=== PATIENT | female | born 1990 | race Two or more races ===

== ENCOUNTER 2021-06-06 13:54 | Outpatient (CLI) | payer BC, SELFPAY ==
[2021-06-06 14:07] LABS: Basophils Percent Auto 0.3 % (0.2-1.2); Eosinophils Absolute Auto 0.1 K/mm3 (0-0.3); Eosinophils Percent Auto 1.4 % (0-4.4); Hematocrit 34.1 % (37.0-47.0); Hemoglobin 11.2 g/dL (12.0-15.0); Immature Granulocyte Absolute 0.05 K/mm3 (0.00-0.031); Immature Granulocyte Percent A 0.6 % (0-0.5); Lymphocytes Absolute Auto 1.46 K/mm3 (0.9-3.2); Lymphocytes Percent Auto 16.7 % (18.3-44.2); Mean Corpuscular HGB Conc 32.8 g/dl (32-36); Mean Corpuscular Volume 97.4 fl (80-100); Mean Platelet Volume 9.4 fl (7.4-10.4); Monocytes Absolute Auto 0.8 K/mm3 (0.1-0.6); Monocytes Percent Auto 9.4 % (2.6-8.5); Neutrophils Absolute Auto 6.3 K/mm3 (1.3-6.7); Neutrophils Percent Auto 71.6 % (45.5-73.1); Platelet Count Result 256 k/mm3 (150-375); Red Cell Distribution Width 14.3 % (11.5-14.5); White Blood Count 8.7 K/mm3 (4.5-10.0)
[2021-06-08 10:12] LABS: Rapid Plasma Reagin Non-Reactive (NonReactive)
== END 2021-06-06 13:55 | disposition home or self-care (01) ==
PROVIDERS: PCP Family Medicine; Visit Provider Obstetrics & Gynecology
DX: O34.211 Maternal care for low transverse scar from previous cesarean delivery (principal); Z3A.39 39 weeks gestation of pregnancy
CPT/HCPCS: 36415; 85025; 86592; 86850; 86900; 86901

== ENCOUNTER 2021-06-08 05:45 | Inpatient (IN) | payer BC, SELFPAY ==
[2021-06-08] VITALS (41 sets, daily range): BP systolic 82–108; BP diastolic 28–71; PULSE 50–232; RESP 13–21; TEMP 35.8–37.3; O2SAT 96–100; BMI 31.9
--- NOTE | ~2021-06-08 | CT_ITS ---
EXAMINATION: CTA chest PE protocol DATE: 06/09/2021 05:49 INDICATION: Chest pain TECHNIQUE: Computed tomography angiography (CTA) of the chest was performed with 100 mL Omnipaque-350 intravenous contrast timed to evaluate the pulmonary arteries. Coronal maximum intensity projection 3D-reconstructions were created by the technologist. Automated exposure control and iterative reconst ruction technique were employed. Exam dose: 213.48 mGy-cm total exam DLP. COMPARISON: None. FINDINGS: There is diagnostic contrast enhancement of the pulmonary arteries and no evidence of pulmo nary embolism. There is prominent bilateral lower lobe dependent atelectasis. Bilateral small pleural effusions. Normal heart size. No pericardial effusion. No thoracic aortic aneurysm or dissection. Aberrant right subclavian artery, congenital. No hilar or mediastinal mass lesion or lymphadenopathy. There is a small amount of free air beneath the diaphragm, postsurgical. 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 Reviewed, dictated and finalized at [facility]. 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
--- OUTSIDE RECORDS SUMMARY | 2021-06-08 05:51 | XMS_ITS | Encounter Summary ---
:1990 Author Care Team Providers Name Role Phone Man Walker MD Primary Care Provider [phone] Reason for Visit OB visit Assessment and Plan 1. History of section ? section (SURG) 2. History of depression 3. Routine care Discussion Note: None recorded.Patient educational handouts: No information available. Plan of Care Reminders Provider Appointments Surg Post Op Am y Danette 06/15/2021 MD Caren 10:30AM Lab None ? ? recorded. Referral None ? ? recorded. Procedures None ? ? recorded. Surgeries Rui Surgery Section (SURG) 06/08/2021 Caren Imaging None ? ? recorded. Medications Name Start Date ? ? ? Pulmicort Flexhaler 180 mcg/actuation breath activated ? INHALE 1 PUFF TWICE A DAY BY INHALATION ROUTE. Medications Administered None recorded. Vitals Height Weight BMI Blood Pressure 5 ft 6 in 149 lbs 24 kg/m2 92/59 mm[Hg] Results Lab Results None recorded. Allergies Code Code System Name Reaction Severity Onset NKDA
--- OUTSIDE RECORDS SUMMARY | 2021-06-08 05:51 | XMS_ITS | Encounter Summary ---
:1990 Author Care Team Providers Name Role Phone Man Walker MD Primary Care Provider [phone] Reason for Visit OB visit Assessment and Plan 1. Routine care 2. History of section 3. History of depression Discussion Note: None recorded.Patient educational handouts: No information available. Plan of Care Reminders Provider Appointments Surg Post 06/15/2021 Gladis Chase herese Op 10:30AM MD Caren Lab None ? ? recorded. Referral None ? ? recorded. Procedures None ? ? recorded. Surgeries None ? ? recorded. Imaging None ? ? recorded. Medications Name Start Date ? ? ? Pulmicort Flexhaler 180 mcg/actuation breath activated ? INHALE 1 PUFF TWICE A DAY BY INHALATION ROUTE. Medications Administered None recorded. Vitals Height Weight BMI Blood Pressure 5 ft 6 in 152 lbs 24.5 kg/m2 98/64 mm[Hg] Results Lab Results None recorded. Allergies Code Code System Name Reaction Severity Onset NKDA ? ? ? Problems Name Status Onset Date Source ? [place]
--- OUTSIDE RECORDS SUMMARY | 2021-06-08 05:51 | XMS_ITS | Encounter Summary ---
:1990 Author Care Team Providers Name Role Phone Man Walker MD Primary Care Provider [phone] Reason for Visit OB visit Assessment and Plan 1. History of section 2. Routine care Discussion Note: None recorded.Patient educational [...] BMI Blood Pressure 5 ft 6 in 155 lbs 25 kg/m2 101/68 mm[Hg] Results Lab Results None recorded. Allergies Code Code System Name Reaction Severity Onset NKDA ? ? ? Problems Name Status Onset Date Source ? Active 12/01/2020 ? History of De
--- OUTSIDE RECORDS SUMMARY | 2021-06-08 05:51 | XMS_ITS ---
:1990 Author Care Team Providers Name Role Phone TRENTON MÉNDEZ MD Primary Care Provider [phone] Allergies Code Code System Name Reaction Severity Status Onset NKDA ? Medications Name Status Start Date Stop Date ? ? acetaminophen 300 mg-codeine 30 mg tablet Completed ? 10/27/2020 TAKE 1 TABLET BY MOUTH EVERY 4 TO 6 HOURS NEEDED FOR PAIN albuterol sulfate HFA 90 mcg/actuation aerosol inhaler Completed ? 10/27/2020 INL 2 PFS ITL Q 4 H PRF WHZ amoxicillin 500 mg tablet Completed ? 2020 TAKE 2 TABLETS BY MOUTH TO START, THEN 1 TABLET 3 TIMES A DAY U NTIL FINISHED amoxicillin 875 mg-potassium Completed ? 11/2020 clavulanate 125 mg tablet buspirone 7.5 mg tablet Completed ? 10/28/19 21 chlorhexidine gluconate 0.12 % mouthwash Completed ? 10/27/2020 SWISH AND SPIT 1/2 OUNCE TWICE DAILY UNTIL ALL FINISHED escitalopram 10 mg tablet Completed ? 2020 Active ? Not available Pulmicort Flexhaler 180 mcg/actuation breath activated Active ? Not available INHALE 1 PUFF TWICE A DAY BY INHALATION ROUTE. sertraline 25 mg tablet Completed ? 10/28/19 21 Problems Name Status Onset Date Source ? Active 12/01/2020 ? History of Depression Active ? ? History of Section Active ? ? Procedures Date Name Performed by ? 01/17/2018 Section Information not cristal slade
--- OUTSIDE RECORDS SUMMARY | 2021-06-08 05:51 | XMS_ITS | Encounter Summary ---
:1990 Author Care Team Providers Name Role Phone Man Walker MD Primary Care Provider [phone] Reason for Visit OB visit Assessment and Plan 1. History of section 2. History of depression 3. Routine care [...] BMI Blood Pressure 5 ft 6 in 151 lbs 24.4 kg/m2 111/67 mm[Hg] Results Lab Results None recorded. Allergies Code Code System Name Reaction Severity Onset NKDA ? ? ? Problems Name Status Onset Date Source ? Pregn
--- OUTSIDE RECORDS SUMMARY | 2021-06-08 05:51 | XMS_ITS | Encounter Summary ---
:1990 Author Care Team Providers Name Role Phone Man Walker MD Primary Care Provider [phone] Reason for Visit OB visit Assessment and [...] BMI Blood Pressure 5 ft 6 in 156 lbs 25.2 kg/m2 107/71 mm[Hg] Results Lab Results None recorded. Allergies Code Code System Name Reaction Severity Onset NKDA ? ? ? Problems Name Status Onset Date Source ? Active 12/01/2020 ? History of De
--- OUTSIDE RECORDS SUMMARY | 2021-06-08 05:51 | XMS_ITS | Encounter Summary ---
:1990 Author Care Team Providers Name Role Phone Man Walker MD Primary Care Provider [phone] Reason for Visit OB visit Assessment and [...] BMI Blood Pressure 5 ft 6 in 146 lbs 23.6 kg/m2 99/64 mm[Hg] Results Lab Results None recorded. Allergies Code Code System Name Reaction Severity Onset NKDA ? ? ? Problems Name Status Onset Date Source ?
[2021-06-08] MEDS: LACTATED RINGERS 1,000 ML 125 ML IV CONT (06:34)
--- NOTE | 2021-06-08 06:58 | P.PNAN_ITS ---
Anes - Initial Pre Proc Eval Procedure: Operation Date: 06/08/21 07:30 Proposed Procedures p Repeat Section - Gladis Fabian MD Date/Time: 06/08/21 06:58 Surgeon: Gladis Fabian MD Pre Op Diagnosis: Repeat c/s Patient Data Age: 31 Gender: F Height: 1.49 m Weight: 70.5 kg Last Vital Signs Pulse 86 06/08/21 05:59 BP 101/66 06/08/21 05:59 Allergies Allergy/AdvReac Type Severity Reaction Status Date / Time No Known Allergies Allergy Verified 05/15/21 12:55 Home Medications Medication Instructions Recorded Confirmed Type PNV cmb#95-ferrous fumarate-FA 1 tablet PO DAILY 05/15/21 05/15/21 History [] Patient hx anesthesia problems: none Family hx anesthesia problems: none Results Review: All pre-operative results and documents have been reviewed as part of the pre-operative evaluation. [facility] Surgical History Surgical History (Updated 06/08/21 @ 06:59 by Ranjan Joseph MD) History of section Family History Family History Other No pertinent family history Social History Social History Smoking status: Never smoker Substance use: never Spiritual care concerns: No Anes - Eval Final PreProcedure Day of Procedure 06/08/21 06:58 Patient weight: overweight Heart: regular rate and rhythm Lungs: clear to auscultation Airway: Mallampati scale class II Neurological: alert and oriented Last oral intake: >/= 8 hours ASA classification: II Emergent: no Anesthetic plan: proceed Anesthesia type and monitoring: regional spinal and standard monitoring Results Review: All pre-operative results and documents have been reviewed as part of the pre-operative evaluation. Informed Consent: The patient's anesthetic plan and its attendant risks and benefits were discussed with the patient/family/POA. Questions were solicited and answers provided to the satisfaction of the patient/family/POA.
--- NOTE | 2021-06-08 07:20 | PM.IMHP ---
H&P: HPI History of Present Illness Date/Time: 06/08/21 07:20 Chief Complaint: R CS Narrative: Shanika is a 31yo at 39w for Repeat CS. uncomplicated except by depression, stable without meds currently but wants to restart prozac after delivery. Review of Systems Review of Systems: All systems reviewed & are unremarkable except as noted in HPI and below PMFSH Surgical History Surgical History (Updated 06/08/21 @ 07:23 by Gladis Fabian MD) History of section Family History Family History Other No pertinent family history Social History Social History Smoking status: Never smoker Substance use: never Spiritual care concerns: No Meds Home Medications and Allergies Home Medications Medication Instructions Recorded Confirmed Type PNV cmb#95-ferrous fumarate-FA 1 tablet PO DAILY 05/15/21 05/15/21 History [] Allergies Allergy/AdvReac Type Severity Reaction Status Date / Time No Known Allergies Allergy Verified 05/15/21 12:55 Vital Signs Vital Signs - 24 hr 06/08/21 05:59 Pulse Rate 86 Blood Pressure 101/66 Exam Const: General: no acute distress Resp: Effort & Inspection: normal respiratory effort Auscultation: clear to auscultation bilaterally Cardio: Rate: regular rate Rhythm: regular rhythm GI: GI Palp: Yes Soft to palpation Extrem: General: normal to inspection Assessment and Plan Assessment and plan (1) History of delivery, currently : Code(s): O34.219 - Maternal care for unspecified type scar from previous delivery Status: Acute Additional Plan Plan Repeat CS Discussed RBA, pt consented, all questions answered. will proceed.
--- NOTE | 2021-06-08 07:23 | WPDHPUPDATE1 ---
History and Physical Update Update Date/Time: 06/08/21 07:23 History and Physical has been reviewed, including an updated exam of the patient. There are NO changes in the patient's condition. Risks, benefits, and alternatives have been discussed and questions answered. Patient agrees to proceed with procedure.
--- NOTE | 2021-06-08 08:31 | P.PCNOB_ITS ---
OB - Delivery Note Procedure Delivery date: 06/08/21 Procedure: Procedures Operation Date: 06/08/21 07:30 <No data on this case meets the specified criteria> Repeat Low Transverse Section Route of delivery: Specimen: Yes (placenta) Quantitative Blood Loss (ml): 660 Anesthesia type: Spinal Disposition: floor Complications: none, but a window was seen in the uterus. The amniotic sac was immediately below the uterine serosa. RECOMMEND 37-38 WEEK DELIVERY IF HAS ANOTHER . Narrative: The patient was taken to the OR and received spinal anesthesia. She was placed in dorsal supine position with left lateral tilt. SCDs and garcia were placed. She was prepped and draped in the normal sterile fashion. A Pfannensteil skin incision was made and carried through to the underlying layer of fascia. The fascia was incised in the midline and then extended laterally using Ponce scissors. The muscles were in the midline and the peritoneum was entered bluntly. The peritoneal incision was extended infer iorly and superiorly with care to avoid the bladder. The bladder blade was then inserted, the vesicouterine peritoneum was grasped, incised with Metzenbaum scissors, and a bladder flap created. The bladder blade was reinserted. Below the bladder flap was the amniotic sac, with no uterine muscle overlying. A low transverse uterine incision was made with a scalpel and extended bluntly. AROM was performed and fluid was noted to be clear. The head was delivered, followed by the remainder of the baby. The baby's oropharynx was suctioned. After 30 seconds, the cord was clamped and cut and the infant was handed off. Cord blood was obtained and the placenta was then removed manually. The uterus was exteriorized. A moist lap sponge was used to curette the endometrium. The uterine incision was then closed with one layer of 0-Vicryl in a running, locking fashion. Good hemostasis was noted. The posterior cul de sac was irrigated with normal saline and cleared of all clot and debris. The uterus was returned to the abdomen. Both lateral gutters were then irrigated. The rectus muscles were inspected and found to be hemostatic. The fascia was reapproximated using 0-Vicryl in running fashion. The subcutaneous tissue was irrigated with normal saline and made hemostatic with Bovie electrocautery. The skin was then closed with absorbable juventino. Steri strips and a bandage were applied. The uterus was evacuated. The patient tolerated the procedure very well. All counts were correct. She was taken to the recovery room in good condition. Baby Date of : 06/08/21 Time of : 07:59 Weeks of gestation at delivery: 39 Infant gender: Female Weight (pounds): 8 Weight (ounces): 2 presentation: vertex Placenta delivery description: Spontaneous cord vessel description: 3 Vessels and Delayed Cord Clamping score one minute: 9 score five minutes: 9
[2021-06-08] MEDS: OXYTOCIN 30 UNITS/NS 500 ML 30 UNITS/500 ML BAG 125 UNITS IV CONT (10:09)
--- NOTE | 2021-06-08 11:05 | PC.NURSE ---
Patient transferred to post room #287 via stretcher. Support person present. Oriented to unit, room, information board, rooming in, admission packet and security measures. Patient verbalizes understanding.
--- NOTE | 2021-06-08 12:40 | PC.NURSE ---
Mother called out for assist with feeding, infant sleepy no feeding cues noted. Demonstrated stimulation techniques to wake infant for feeding. Assisted with infant to breast. Reviewed positioning/alignment in cross cradle, holding breast in ?U? hold and guided asymmetrical latch on. Reviewed rational for each. remains sleepy with no rooting cues noted. Suggested skin to skin and attempt again in 30 minutes. Requested mother call out if infant awake and eager to feed.
--- NOTE | 2021-06-08 13:10 | PC.NURSE ---
Mother called out for assist with feeding, reporting was eager at first feeding. Mother states she attempted with first child and had difficulties with latch. is able to freely thrust tongue past gum ridge and flange both lips. Skin is intact on both nipples, no redness and bruising noted. Reviewed feeding cues, frequencies, duration of feedings, feeding elimination flow sheet, and signs of adequate intake. Demonstrated stimulation techniques to wake for feeding. Assisted with to breast. Reviewed positioning/alignment in cross cradle, holding breast in ?U? hold and guided asymmetrical latch on. Reviewed rational for each. Infant able to latch correctly within a few attempts. nursed eagerly with steady draws and occasional swallowing noted, some pausing noted. Reviewed signs of a correct latch, effective nursing and suck swallow ratio. Suggested mother stimulate while feeding to increase stimulation for milk supply, for increased intake and to assist with maintaining deep latch. was able to maintain latch without discomfort to mother. Demonstrated how to adjust latch more deeply while feeding as needed. . Nipple care reviewed of lanolin after feedings, warm compresses as needed. Instructed mother to call out for RN assistance if she is unable to latch for feeding or she has discomfort with nursing. Instructed feeding should be initiated three hours from start of last feeding or if feeding cues are noted before. Mother voiced understanding of information shared.
[2021-06-08] MEDS: DEXTROSE 5%/0.45% SOD CHL 1,000 ML 125 ML IV CONT ×2 (14:12→22:08)
[2021-06-08] MEDS: KETOROLAC 30 MG/ML VIAL (*BKC) IV PUSH ×2 (14:13→21:10)
[2021-06-08] MEDS: ONDANSETRON INJ 4 MG/2 ML VIAL IV PUSH (16:00)
--- NOTE | 2021-06-08 19:39 | PC.NURSE ---
Infant being transferred to [facility] d/t decreased HH, [facility] would like a Kleihauer-Betke drawn. Orders placed and RN notified.
[2021-06-08 20:20] LABS: Basophils Percent Auto 0.4 % (0.2-1.2); Eosinophils Percent Auto 0.4 % (0-4.4); Hematocrit 33.6 % (37.0-47.0); Hemoglobin 10.9 g/dL (12.0-15.0); Immature Granulocyte Absolute 0.02 K/mm3 (0.00-0.031); Immature Granulocyte Percent A 0.2 % (0-0.5); Lymphocytes Absolute Auto 0.67 K/mm3 (0.9-3.2); Lymphocytes Percent Auto 6.7 % (18.3-44.2); Mean Corpuscular HGB Conc 32.4 g/dl (32-36); Mean Corpuscular Hemoglobin 32.2 pg (26-34); Mean Corpuscular Volume 99.4 fl (80-100); Mean Platelet Volume 9.9 fl (7.4-10.4); Monocytes Absolute Auto 0.5 K/mm3 (0.1-0.6); Monocytes Percent Auto 4.7 % (2.6-8.5); Neutrophils Absolute Auto 8.8 K/mm3 (1.3-6.7); Neutrophils Percent Auto 87.6 % (45.5-73.1); Platelet Count Result 220 k/mm3 (150-375); Red Blood Count 3.38 M/mm3 (4.2-5.4); Red Cell Distribution Width 14.1 % (11.5-14.5); White Blood Count 10.1 K/mm3 (4.5-10.0)
[2021-06-09] VITALS (7 sets, daily range): BP systolic 92–113; BP diastolic 51–68; PULSE 65–92; RESP 16–18; TEMP 36.4–38.6; O2SAT 93–98
[2021-06-09] MEDS: KETOROLAC 30 MG/ML VIAL (*BKC) IV PUSH (03:33)
[2021-06-09 04:57] LABS: Add Urine Microscopic? YES; Appearance Urine Clear (Clear); Bacteria Urine Trace /hpf; Bilirubin Urine Negative (Negative); Blood Urine 1+ (Negative); Color Urine Straw (Yellow); Glucose Urine UA Negative (Negative); Ketones Urine Negative (Negative); Leukocyte Esterase Ur 1+ LEU/UL (Negative); Mucus Urine Rare /lpf; Nitrate Urine Negative (Negative); Protein Urine Negative (Negative); RBC Urine 0-2 /hpf (0-2); Urobilinogen Urine Negative mg/dL (<2.0); WBC Urine 0-3 /hpf
[2021-06-09 05:03] LABS: Alanine Aminotransferase 12 U/L (4-35); Albumin Level 2.5 g/dL (3.5-5.1); Alkaline Phosphatase 132 U/L (38-126); Anion Gap 2 mmol/L (8-16); Aspartate Amino Transferase 25 U/L (14-36); Bilirubin,Total 0.3 mg/dL (0.2-1.3); Blood Urea Nitrogen 3 mg/dL (7-17); Calcium 7.7 mg/dL (8.4-10.2); Carbon Dioxide 22 mmol/L (22-30); Chloride 105 mmol/L (98-107); Estimated Glomerular Filt Rate > 60; Glucose 143 mg/dL (65-110); Potassium 3.5 mmol/L (3.4-5.0); Sodium 129 mmol/L (137-145)
[2021-06-09 05:19] LABS: Specific Grav Ur 1.003 (1.001-1.035)
[2021-06-09] MEDS: AMPICILLIN 2 GM/NS 100 ML 2 GM/100 ML BAG IVPB (05:42)
[2021-06-09] MEDS: GENTAMICIN 60 MG/50 ML NS 60 MG/50 ML BAG 100 MG IVPB ×2 (07:30→16:58)
--- NOTE | 2021-06-09 07:43 | PM.OBPNVD ---
OB - PN: Subj Subjective Date/time seen: 06/09/21 07:43 Patient comments: no complaints [place] baby status: NICU [place] feeding status: pumping and storing Narrative: POD 1 from primary CS. Baby transferred to [facility] for HDN. Shanika had temp 101.5 overnight and 99.1 most recently. Antibiotics started. UA not impressive. Had some referred pain bilateral clavicular and shoulder pain. CT neg for PE, showed atelectasis and small pleural effusions. OB - PN: Obj Data Labs CBC & Chem 7: 06/08/21 19:52 06/09/21 04:34 Labs: Laboratory Results - last 24 hr 06/08/21 06/08/21 06/09/21 19:52 19:52 04:34 WBC 10.1 H RBC 3.38 L Hgb 10.9 L Hct 33.6 L MCV 99.4 MCH 32.2 MCHC 32.4 RDW 14.1 Plt Count 220 MPV 9.9 Immature Gran % (Auto) 0.2 Neut % (Auto) 87.6 H Lymph % (Auto) 6.7 L [place] % (Auto) 4.7 Eos % (Auto) 0.4 Baso % (Auto) 0.4 Lymph # (Auto) 0.67 L [place] # (Auto) 0.5 Eos # (Auto) 0.0 Baso # (Auto) 0.0 Abs Immat Gran (auto) 0.02 Absolute Neuts (auto) 8.8 H Absolute Nucleated RBC 0.0 Nucleated RBC % 0.0 Sodium 129 L Potassium 3.5 Chloride 105 Carbon Dioxide 22 Anion Gap 2 L BUN 3 L Creatinine 0.40 L Estim Creat Clear Calc Not Reportable Estimated GFR > 60 Glucose 143 H Calcium 7.7 L Total Bilirubin 0.3 AST 25 ALT 12 Alkaline Phosphatase 132 H Total Protein 5.0 L Albumin 2.5 L Urine Color Urine Appearance Urine pH Ur Specific [place] Urine Protein Urine Glucose (UA) Urine Ketones Ur Blood (Man) Urine Nitrate Urine Bilirubin Urine Urobilinogen Leukocyte Esterase Rfl Urine RBC Urine WBC Urine Bacteria Urine Mucus KB Hemoglobin Negative 06/09/21 04:37 WBC RBC Hgb Hct MCV MCH MCHC RDW Plt Count MPV Immature Gran % (Auto) Neut % (Auto) Lymph % (Auto) [place] % (Auto) Eos % (Auto) Baso % (Auto) Lymph # (Auto) [place] # (Auto) Eos # (Auto) Baso # (Auto) Abs Immat Gran (auto) Absolute Neuts (auto) Absolute Nucleated RBC Nucleated RBC % Sodium Potassium Chloride Carbon Dioxide Anion Gap BUN Creatinine Estim Creat Clear Calc Estimated GFR Glucose Calcium Total Bilirubin AST ALT Alkaline Phosphatase Total Protein Albumin Urine Color Straw Urine Appearance Clear Urine pH 7.0 Ur Specific [place] 1.003 Urine Protein Negative Urine Glucose (UA) Negative Urine Ketones Negative Ur Blood (Man) 1+ H Urine Nitrate Negative Urine Bilirubin Negative Urine Urobilinogen Negative Leukocyte Esterase Rfl 1+ H Urine RBC 0-2 Urine WBC 0-3 Urine Bacteria Trace Urine Mucus Rare KB Hemoglobin OB - PN A/P Assessment and Plan (1) delivery delivered: Code(s): O82 - Encounter for delivery without indication Status: Acute (2) Fever and chills: Code(s): R50.9 - Fever, unspecified Status: Acute Plan day: 1 Plan: routine care Comments: Continue antibiotics for 24 hours. Urine culture pending COVID test pending CT chest neg for PE, atelectasis present Incentive spirometer q 1 hour. Do not suspect surgical infection as fever present less than 24 hours after delivery. Time Spent With Patient Time: Total time spent is greater than 50% in coordination of care (as documented) at patient's floor/unit and/or counseling patient: Exam Narrative: NAD abdomen soft, appropriately tender, incision bandaged Extremities nontender with 1+ edema lungs CTAB except mild crackles at bases
[2021-06-09] MEDS: KCL 20 MEQ/D5/0.45% SOD CHL 1,000 ML 125 ML (08:41)
[2021-06-09] MEDS: HYDROcodone/acetaminophen (*CRX) 5-325 MG TABLET 1 TAB PO ×4 (08:41→19:56)
[2021-06-09] MEDS: DOCUSATE SODIUM 100 MG CAPSULE PO ×2 (08:42→17:09)
[2021-06-09] MEDS: MULTIVIT/MIN/PREN/FOL AC/IRON TABLET 1 TAB PO (08:42)
--- NOTE | 2021-06-09 08:49 | WPDANLDNPN2 ---
Anes-Prog Note L&D-Neuraxial Date/Time: 06/09/21 08:49 Neuraxial medications: intrathecal PF morphine Opiod-related complaints: pruritis moderate, treatment effective Patient feedback: Patient satisfied with post-operative pain management.
--- NOTE | 2021-06-09 08:49 | WPDANLDPN2 ---
Anes-Prog Note L&D Date/Time: 06/09/21 08:49 Comfortable throughout: section Neuraxial method: spinal Epidural/Spinal procedure site: clean & non-tender Neuro status: Neuro function grossly intact. Cardiovascular status: normal Respiratory status: normal Airway patency: baseline Mental status: baseline Post-Op hydration status: normal Vital Signs: Last Vital Signs Temp 99.1 F 06/09/21 05:45 Pulse 88 06/09/21 03:44 Resp 18 06/09/21 03:44 BP 96/58 L 06/09/21 03:44 Pulse Ox 93 06/09/21 03:44 Pain score (VAS): 2 I/O: Intake & Output 06/08/21 06/09/21 06/09/21 23:59 07:59 15:59 Intake Total 1300 200 Output Total 1500 1250 Balance -200 -1050 Post-procedural complaints: none Patient feedback: Patient satisfied with anesthetic care.
[2021-06-09 09:13] LABS: Basophils Percent Auto 0.4 % (0.2-1.2); Eosinophils Percent Auto 0.2 % (0-4.4); Hematocrit 32.7 % (37.0-47.0); Hemoglobin 10.6 g/dL (12.0-15.0); Immature Granulocyte Absolute 0.04 K/mm3 (0.00-0.031); Immature Granulocyte Percent A 0.4 % (0-0.5); Lymphocytes Absolute Auto 0.71 K/mm3 (0.9-3.2); Lymphocytes Percent Auto 6.2 % (18.3-44.2); Mean Corpuscular HGB Conc 32.4 g/dl (32-36); Mean Corpuscular Volume 98.8 fl (80-100); Mean Platelet Volume 9.9 fl (7.4-10.4); Monocytes Absolute Auto 0.6 K/mm3 (0.1-0.6); Monocytes Percent Auto 5.3 % (2.6-8.5); Neutrophils Percent Auto 87.5 % (45.5-73.1); Platelet Count Result 220 k/mm3 (150-375); Red Blood Count 3.31 M/mm3 (4.2-5.4); Red Cell Distribution Width 14.3 % (11.5-14.5); White Blood Count 11.4 K/mm3 (4.5-10.0)
[2021-06-09] MEDS: AMPICILLIN 1 GM/NS 50 ML 1 GM/50 ML BAG IVPB ×2 (12:21→19:37)
[2021-06-09] MEDS: FLUoxetine HCL 10 MG CAPSULE PO (12:21)
[2021-06-09] MEDS: IBUPROFEN 600 MG TABLET PO ×2 (12:32→19:43)
[2021-06-09 19:35] LABS: SARS-CoV-2 RNA PCR Negative
[2021-06-10 04:10] VITALS: TEMP 36.6
[2021-06-10] MEDS: IBUPROFEN 600 MG TABLET PO ×2 (04:12→13:06)
[2021-06-10] MEDS: HYDROcodone/acetaminophen (*CRX) 5-325 MG TABLET 1 TAB PO ×3 (04:12→13:06)
[2021-06-10 08:00] VITALS: BP 111/70; PULSE 64; RESP 20; TEMP 36.6; O2SAT 99
[2021-06-10] MEDS: DOCUSATE SODIUM 100 MG CAPSULE PO (08:09)
[2021-06-10] MEDS: MULTIVIT/MIN/PREN/FOL AC/IRON TABLET 1 TAB PO (08:09)
[2021-06-10] MEDS: FLUoxetine HCL 10 MG CAPSULE PO (08:10)
--- NOTE | 2021-06-10 08:27 | PM.OBPNVD ---
OB - PN: Subj Subjective Date/time seen: 06/10/21 08:27 Patient comments: no complaints and pain well controlled feeding status: pumping and bottle feeding Narrative: Baby David out of NICU at [facility], had blood transfusion, doing great. Wants DC to be with her. Afebrile since one fever. Abx stopped yesterday evening. Suspect fever was due to atelectasis based on CT findings and pt symptoms. OB - PN: Obj Data Labs CBC & Chem 7: 06/09/21 09:07 06/09/21 04:34 Labs: Laboratory Results - last 24 hr 06/09/21 06/09/21 08:25 09:07 WBC 11.4 H RBC 3.31 L Hgb 10.6 L Hct 32.7 L MCV 98.8 MCH 32.0 MCHC 32.4 RDW 14.3 Plt Count 220 MPV 9.9 Immature Gran % (Auto) 0.4 Neut % (Auto) 87.5 H Lymph % (Auto) 6.2 L [place] % (Auto) 5.3 Eos % (Auto) 0.2 Baso % (Auto) 0.4 Lymph # (Auto) 0.71 L [place] # (Auto) 0.6 Eos # (Auto) 0.0 Baso # (Auto) 0.0 Abs Immat Gran (auto) 0.04 H Absolute Neuts (auto) 10.0 H Absolute Nucleated RBC 0.0 Nucleated RBC % 0.0 SARS-CoV-2 RNA (RT-PCR) Negative OB - PN A/P Assessment and Plan (1) delivery delivered: Code(s): O82 - Encounter for delivery without indication Status: Acute Plan day: 2 Plan: discharge home Comments: May DC home if remains afebrile until 5pm. Encouraged time to rest and recover though in hospital still. Precautions given, FU 1 week. Time Spent With Patient Time: Total time spent is greater than 50% in coordination of care (as documented) at patient's floor/unit and/or counseling patient: Exam Narrative: NAD abdomen soft, appropriately tender, incision CDI Extremities nontender with 1+ edema
--- NOTE | 2021-06-10 08:33 | P.DS_ITS ---
DS: Admitting Diagnosis Discharge Date 06/10/21 Admitting Diagnosis IUP 39w, prior CS DS: Discharge Diagnosis Discharge Diagnosis (1) delivery delivered: Code(s): O82 - Encounter for delivery without indication Status: Acute OB - DS: Summary Hospital Course Hospital Course: Pt had an uncomplicated repeat section. Baby was transferred to [facility] with ABO incompatibility and anemia. Shanika had a single fever at less than 24 hours after delivery. She received a work up and antibiotics, but was eventually attributed to atelectasis. She remained afebrile for 24 hours off antibiotics and was stable for discharge. OB Procedures : Ultrasound OB Procedures Intrapartum: OB Procedures: : Antibiotics Peripartum Data Infant Delivery Method: Section Procedures: Procedures Operation Date: 06/08/21 07:30 Actual Procedure Side Surgeon p Section Gladis Fabian MD Status at Discharge Functional status at discharge: independent ambulation Time Spent with Patient Time attestation: Total time spent providing and/or coordinating discharge services: Exam Narrative: NAD abdomen soft, appropriately tender, incision CDI DS: Data Data Completed and Pending Labs on day of discharge: Labs from last 24 hours 06/09/21 06/09/21 09:07 08:25 WBC 11.4 H RBC 3.31 L Hgb 10.6 L Hct 32.7 L MCV 98.8 MCH 32.0 MCHC 32.4 RDW 14.3 Plt Count 220 MPV 9.9 Immature Gran % (Auto) 0.4 Neut % (Auto) 87.5 H Lymph % (Auto) 6.2 L [place] % (Auto) 5.3 Eos % (Auto) 0.2 Baso % (Auto) 0.4 Lymph # (Auto) 0.71 L [place] # (Auto) 0.6 Eos # (Auto) 0.0 Baso # (Auto) 0.0 Abs Immat Gran (auto) 0.04 H Absolute Neuts (auto) 10.0 H Absolute Nucleated RBC 0.0 Nucleated RBC % 0.0 SARS-CoV-2 RNA (RT-PCR) Negative Discharge Plan Discharge Attending physician on discharge: Gladis Fabian Discharging Clinician: Gladis Fabian Anticipated Discharge Date/Time: 06/10/21 17:00 Patient Disposition: Home, Self-Care Activity: may shower, no straining, may drive after 2 weeks and pelvic rest Diet: regular Patient Instructions: Antibiotic Form Stand Alone Forms: General Discharge Information Follow-up/Referrals: Gladis Fabian MD [Physician] - 1 Week Discharge Medications: New hydrocodone-acetaminophen 5-325 mg Tablet 1 tablet PO Q3H PRN (Reason: Moderate Pain (4-6)) Qty: 30 RF: 0 docusate sodium 100 mg Capsule 100 mg PO BID PRN (Reason: Constipation) Qty: 60 RF: 0 ibuprofen 600 mg Tablet 600 mg PO Q6H PRN (Reason: Cramping) Qty: 60 RF: 0 fluoxetine [Prozac] 10 mg Capsule 10 mg PO QAM Qty: 30 RF: 2 Continued PNV [id number]-ferrous fumarate-FA [] 28 mg iron- 800 mcg Tablet 1 tablet PO DAILY RF: 0 Date of admission: 06/08/21 05:45 Primary Care Provider: Denise,Man Owen Admitting Provider: Gladis Fabian Attending physician on admission: Gladis Fabian Condition: Stable
--- NOTE | 2021-06-10 13:11 | PC.NURSE ---
Patient viewed the discharge video Mother & Baby Care, The First Two Weeks . Patient was given the opportunity and encouraged to ask questions. Patient verbalized understanding of information shared and has been given the mother/baby guide for home reference.
[2021-06-11 08:12] VITALS: BP 124/65; PULSE 65; RESP 20; TEMP 36.6; O2SAT 100
== END 2021-06-10 14:15 | disposition home or self-care (01) | DRG 787 ==
LOC: ANHLDR 05:50 → ANHOB2 11:41
PROVIDERS: Advanced Practice Midwife; Admitting Provider Obstetrics & Gynecology; PCP Family Medicine; Visit Provider Obstetrics & Gynecology
PROC: 10D00Z1 Extraction of Products of Conception, Low, Open Approach (ICD-10-PCS; CPT 59514; principal; 2021-06-08 07:30)
DX: O34.219 Maternal care for unspecified type scar from previous cesarean delivery (principal); O75.2 Pyrexia during labor, not elsewhere classified; Z20.822 Contact with and (suspected) exposure to COVID-19; O99.344 Other mental disorders complicating childbirth; F32.A Depression, unspecified; Z3A.39 39 weeks gestation of pregnancy; Z37.0 Single live birth
CPT/HCPCS: 36415; 71275; 80053; 81001; 85025; 85460; A9270; C9803; J0290; J1580; J1885; J2175; J2274; J2370; J2405; J2590; J3480; J7120; Q9967; U0003; U0005